=== PATIENT | male | born 1990 | race Caucasian/White ===

== ENCOUNTER 2016-11-26 14:09 | Emergency (ER) | payer SELFPAY ==
[~2016-11-26] VITALS: Ht 185.4 cm; Wt 167.8 kg
[~2016-11-26 14:09] MED LIST: HYDROCODONE BIT1 T11 PO; MOTRIN800 MG PO; Motrin,Rufen800 MG PO; ULTRAM50 MG PO
== END 2016-11-26 16:09 | disposition home or self-care (01) ==
LOC: ED 14:09
DX: S69.91XA Unspecified injury of right wrist, hand and finger(s), initial encounter (principal); I10 Essential (primary) hypertension; F17.200 Nicotine dependence, unspecified, uncomplicated; W50.0XXA Accidental hit or strike by another person, initial encounter; Y93.89 Activity, other specified; Y92.9 Unspecified place or not applicable; Y99.9 Unspecified external cause status

== ENCOUNTER 2017-08-29 17:58 | Emergency (ER) | payer SELFPAY ==
[~2017-08-29] VITALS: Ht 182.8 cm; Wt 163.3 kg
[2017-08-29] MEDS ORDERED: Tobrex Ophth S2.5 ML OPH (18:34)
== END 2017-08-29 19:06 | disposition home or self-care (01) ==
LOC: ED 17:58
DX: S05.02XA Injury of conjunctiva and corneal abrasion without foreign body, left eye, initial encounter (principal); F17.200 Nicotine dependence, unspecified, uncomplicated; X58.XXXA Exposure to other specified factors, initial encounter; Y93.89 Activity, other specified; Y92.9 Unspecified place or not applicable; Y99.9 Unspecified external cause status

== ENCOUNTER 2017-12-12 17:27 | Emergency (ER) | payer SELFPAY ==
[~2017-12-12] VITALS: Wt 163.3 kg
[~2017-12-12 17:27] MED LIST changes: +Tobrex Ophth S2.5 ML OPH
[2017-12-12] MEDS ORDERED: Tobrex Ophth S2.5 ML OPH (17:39)
== END 2017-12-12 17:50 | disposition home or self-care (01) ==
LOC: ED 17:27
DX: S05.01XA Injury of conjunctiva and corneal abrasion without foreign body, right eye, initial encounter (principal); I10 Essential (primary) hypertension; F17.200 Nicotine dependence, unspecified, uncomplicated; Z79.899 Other long term (current) drug therapy; X58.XXXA Exposure to other specified factors, initial encounter; Y93.89 Activity, other specified; Y92.89 Other specified places as the place of occurrence of the external cause; Y99.8 Other external cause status

== ENCOUNTER 2021-04-27 17:50 | Emergency (ER) | payer SELFPAY ==
[~2021-04-27] VITALS: Ht 182.8 cm; Wt 172.4 kg
[2021-04-27] MEDS ORDERED: CEPHALEXIN500 M1 PO (19:54)
== END 2021-04-27 20:10 | disposition home or self-care (01) ==
LOC: ED 17:50
DX: S61.213A Laceration without foreign body of left middle finger without damage to nail, initial encounter (principal); Z79.899 Other long term (current) drug therapy; W26.8XXA Contact with other sharp object(s), not elsewhere classified, initial encounter; Y93.89 Activity, other specified; Y92.89 Other specified places as the place of occurrence of the external cause; Y99.8 Other external cause status

== ENCOUNTER 2021-12-12 02:01 | Emergency (ER) | payer SELFPAY ==
[~2021-12-12] VITALS: Ht 177.8 cm; Wt 140.6 kg
[~2021-12-12 02:01] MED LIST changes: +CEPHALEXIN500 M1 PO
[2021-12-12 02:35] LABS: BASO % 0.4 % (0.0-1.0); EOS # 0.2 10*3/uL (0.0-0.4); EOS % 1.9 % (1.0-4.0); HEMATOCRIT 44.8 % (42.0-52.0); LYMPH % 29.3 % (27.0-41.0); MEAN CELL VOLUME 90.7 fl (80.0-94.0); MEAN PLATELET VOLUME 9.4 fl (9.6-12.3); MONO # 0.9 10*3/uL (0.1-1.0); MONO % 8.4 % (3.0-9.0); NEUT % 59.7 % (47.0-73.0); PLATELET COUNT AUTOMATED 232 10*3/uL (130-400); RED BLOOD COUNT 4.94 10*6/uL (4.50-5.90); RED CELL DISTRI WIDTH 12.2 % (0-14.5); WHITE BLOOD COUNT 10.1 10*3/uL (4.8-10.8)
[2021-12-12 02:51] LABS: ALBUMIN 3.5 gm/dl (3.1-4.5); ALKALINE PHOSPHATASE 67 U/L (45-117); BUN 14 mg/dl (7-24); CHLORIDE 106 mmol/L (98-107); CREATININE 0.88 mg/dL (0.70-1.30); POTASSIUM 3.6 mmol/L (3.5-5.1); SGOT/AST 15 IU/L (3-35); SGPT/ALT 29 U/L (12-78); SODIUM 141 mmol/L (136-145); TOTAL PROTEIN 7.2 gm/dL (6.4-8.2)
== END 2021-12-12 03:26 | disposition home or self-care (01) ==
LOC: ED 02:01
PROVIDERS: Internal Medicine
DX: R07.89 Other chest pain (principal); E66.9 Obesity, unspecified; Z79.2 Long term (current) use of antibiotics; Z98.890 Other specified postprocedural states; Z68.30 Body mass index [BMI] 30.0-30.9, adult